=== PATIENT | male | born 1965 | race Caucasian/White ===

== ENCOUNTER 2022-10-12 15:32 | Emergency (ER) | payer OTHER ==
[~2022-10-12] VITALS: Ht 185.4 cm; Wt 60.3 kg
[2022-10-12 15:51] VITALS: BP 126/82
[2022-10-12] MEDS ORDERED: LORA10TA19 PO (17:25)
[2022-10-12] MEDS ORDERED: OLOP5DRO19 OP (17:25)
--- NOTE | 2022-10-12 17:35 | NUR ---
Patient discharged with v/s stable. Written and verbal after care instructions given and explained for Allergic Conjunctivitis. Patient alert, oriented and verbalized understanding of instructions. Ambulatory with steady gait. All questions addressed prior to discharge. ID band removed. Patient advised to follow up with PMD. Rx of Loratadine, Olopatadine given. Patient educated on indication of medication including possible reaction and side effects. Opportunity to ask questions provided and answered.
--- NOTE | 2022-10-12 17:40 | NUR ---
Corrected (glasses) OS: 20/50 OD: 20/50 OU: 20/50
== END 2022-10-12 17:35 | disposition home or self-care (01) ==
LOC: MED 15:32
DX: H10.13 Acute atopic conjunctivitis, bilateral (principal); K21.9 Gastro-esophageal reflux disease without esophagitis
CPT/HCPCS: 99283